=== PATIENT | female | born 1965 | race Two or more races ===

== ENCOUNTER → 2023-02-03 | Day surgery (SDC) | payer BC ==
[2023-01-27 15:39] LABS: BASOPHILS % (AUTO) 0.5 % (0-1); EOSINOPHILS # (AUTO) 0.2 X10'3 (0-0.9); EOSINOPHILS % (AUTO) 2.7 % (0-6); LYMPHOCYTES # (AUTO) 2.8 X10'3 (1.1-4.8); LYMPHOCYTES % (AUTO) 34.4 % (21-51); MEAN CORPUSCULAR HEMOGLOBIN 29.2 PG (27.0-31.0); MEAN CORPUSCULAR HGB CONC 34.2 g/dL (33.0-36.5); MEAN CORPUSCULAR VOLUME 85.3 FL (78-98); MEAN PLATELET VOLUME 6.3 FL (7.4-10.4); MONOCYTES # (AUTO) 0.6 X10'3 (0-0.9); MONOCYTES % (AUTO) 7.6 % (2-12); NEUTROPHILS # (AUTO) 4.4 X10'3 (1.8-7.7); NEUTROPHILS % (AUTO) 54.8 % (42-75); PRE OP HEMATOCRIT 35.8 % (35.0-45.0); PRE OP HEMOGLOBIN 12.2 g/dL (12.0-16.0); PRE OP PLATELET COUNT 345 X10'3 (140-440); RED BLOOD COUNT 4.19 X10'6 (4.20-5.60); RED CELL DISTRIBUTION WIDTH 13.1 % (11.5-14.5)
[2023-01-27 15:53] LABS: ALBUMIN 3.9 G/DL (3.4-5.0); ALBUMIN/GLOBULIN RATIO 1.1 (1.1-1.5); ALKALINE PHOSPHATASE 83 IU/L (46-116); BLOOD UREA NITROGEN 19 MG/DL (7-18); BUN/CREATININE RATIO 24.1 (10.0-20.0); CALCIUM 9.2 MG/DL (8.5-10.1); CHLORIDE 102 MMOL/L (99-107); CREATININE 0.79 MG/DL (0.40-0.90); PRE OP ALT 35 U/L (30-65); PRE OP ANION GAP 6 (8-16); PRE OP AST 21 U/L (10-37); PRE OP BILIRUB, TOTAL 0.3 MG/DL (0.0-1.0); PRE OP GLUCOSE 88 MG/DL (70-104); PRE OP POTASSIUM 3.8 MMOL/L (3.4-5.1); PRE OP SODIUM 138 MMOL/L (135-145); TOTAL CARBON DIOXIDE 29.6 MMOL/L (24-32); TOTAL PROTEIN 7.3 G/DL (6.4-8.2); eGFR 76 ML/MIN
[~2023-02-03] VITALS: Ht 162.6 cm; Wt 68.0 kg
[~2023-02-03] MED LIST: ACET-1025 PO; BUPIVAcaine/PF 2.5mg/ml (0.25%) 10ml vial ONE; IBUP-860 PO; LIDOcaine 0.5% (5mg/ml) 50ml vial ONE; LORA10TA7 PO; TRAZ-251 PO; acetaminophen 1,000mg/100ml IV 100 ML IV PRN; clindamycin-Cleocin 900mg/D5W 50 ML IV ONE; famotidine 20mg tablet PO ONE; fentaNYL/PF 50MCG/1 ML 2ML syringe IV PRN; fentaNYL/PF 50MCG/1 ML 2ML syringe ONE; hydrALAZINE 20mg/ml inj. IV PRN; labetalol 20mg/4ml (5mg/ml) syringe IV PRN; meperidine/PF 25mg/ml syringe IV PRN; midazolam 1 mg/ML 2ml injection ONE; ondansetron/PF 4mg/2ml inj IV PRN; proCHLORperazine 10 MG/2 ml inj IV PRN; propofol inj 20 ML IV ONE; ringers solution, lacted 1,000 ML IV SCH
[2023-02-03 08:00] VITALS: BP 104/73
[2023-02-03 10:55] VITALS: BP 102/71
--- NOTE | 2023-02-03 10:55 | NUR ---
Received from OR via , accompanied by Anesthesiologist RADAMES AND OR NURSE and report given by Anesthesiolgist. PATIENT IS SLEEPY YET ALERT AND ABLE TO FOLLOW COMMANDS. DENIES PAIN OR DISCOMFORT. 20G TO LT WRIST. RT HAND/WRIST WITH GAUZE AND CHERISE WRAP; CDI. VSS Addendum: 02/03/23 at 1127 by Steffanie Noyola RN Amended: Links added.
[2023-02-03 11:00] VITALS: BP 100/74
[2023-02-03 11:10] VITALS: BP 106/78
[2023-02-03 11:20] VITALS: BP 104/69
[2023-02-03 11:30] VITALS: BP 114/81
--- NOTE | 2023-02-03 11:45 | NUR ---
I HAVE REVIEWED D/C INSTRUCTIONS WITH PATIENT AND THEY HAVE VERBALIZED UNDERSTANDING OF INSTRUCTIONS. PATIENT D/C HOME WITH ALL BELONGINGS AND FAMILY GAVE TRANSPORT Addendum: 02/03/23 at 1157 by Steffanie Noyola RN Amended: Links added.
== END | disposition home or self-care (01) ==
LOC: PAS 08:01
PROVIDERS: ATTEND Orthopaedic Surgery Hand Surgery
DX: M65.311 Trigger thumb, right thumb (principal); G89.4 Chronic pain syndrome; G43.909 Migraine, unspecified, not intractable, without status migrainosus; G47.00 Insomnia, unspecified; E78.00 Pure hypercholesterolemia, unspecified; M85.80 Other specified disorders of bone density and structure, unspecified site; Z88.1 Allergy status to other antibiotic agents; Z88.2 Allergy status to sulfonamides; Z88.8 Allergy status to other drugs, medicaments and biological substances; Z72.89 Other problems related to lifestyle; Z90.710 Acquired absence of both cervix and uterus; Z98.890 Other specified postprocedural states; Z81.1 Family history of alcohol abuse and dependence; Z82.49 Family history of ischemic heart disease and other diseases of the circulatory system
CPT/HCPCS: 26055; 36415; 80053; 82948; 85025; J2250; J2704; J3010; J3490; J7030; J7120; Z7506; Z7512; A4215; A6449